=== PATIENT | male | born 2005 | race Caucasian/White ===

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

== ENCOUNTER 2024-10-30 20:43 | Outpatient (CLI) | payer BC, SELFPAY | END 2024-10-30 20:44 | disposition home or self-care (01) | LOC: AMB 11-02 13:11 | PROVIDERS: PCP Family Medicine; Visit Provider Student in an Organized Health Care Education/Training Program | DX: F10.129 Alcohol abuse with intoxication, unspecified (principal); S09.90XA Unspecified injury of head, initial encounter; Y04.0XXA Assault by unarmed brawl or fight, initial encounter; Y92.9 Unspecified place or not applicable | CPT/HCPCS: A0998 ==